=== PATIENT | male | born 1995 | race Hispanic/Latino ===

== ENCOUNTER 2016-12-20 21:25 | Emergency (ER) | payer SELFPAY ==
[~2016-12-20] VITALS: Ht 180.3 cm; Wt 113.6 kg
[2016-12-20 21:28] VITALS: BP 128/84; PULSE 84; RESP 16; O2SAT 99
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
[2016-12-20] MEDS ORDERED: Tetracaine 0.5% 4 mL Ophthalmic Solution ONE (22:55)
[2016-12-21] MEDS: _Flurbiprofen 0.03% Oph Soln 2.5 mL AFFECT_EYE SCH (00:06)
== END 2016-12-20 23:45 | disposition home or self-care (01) ==
LOC: SED 21:25
DX: S00.12XA Contusion of left eyelid and periocular area, initial encounter (principal); W22.8XXA Striking against or struck by other objects, initial encounter; Y93.89 Activity, other specified; Y92.814 Boat as the place of occurrence of the external cause; Y99.8 Other external cause status